=== PATIENT | female | born 1980 | race Caucasian/White ===

== ENCOUNTER 2018-02-10 18:38 | Emergency (ER) | payer OTHER ==
--- OUTSIDE RECORDS SUMMARY | 2018-02-10 18:41 | XMS REPORT | Summary of Care ---
:1980 Author Name Adelaide Petty R.N. Address Unavailable Unavailable , Care Team Providers Name Role Phone ERNESTINA CHRISTIANSON M.D. Unavailable Unavailable Unavailable Unavailable Unavailable Functional Status Functional Status Health Issues Name Dates Details Functional status health issues are not documented Status: Cognitive Status Health Issues Name Dates Details Cognitive status health issues are not documented Status: Problems Name Dates Details Oral thrush (112.0, B37.0) Status: Active Common migraine without aura (346.10, G43.009) Status: Active Multiple sclerosis (340, G35) Status: Active Medications Name Dates Details Zolpidem Tartrate 10 MG Oral Tablet TAKE 1 TABLET AT BEDTIME. Quantity: 30 Refills: 5 ERNESTINA CHRISTIANSON M.D. Started 27-Jun-2013 ActiveZOLMitriptan 5 MG Oral Tablet Dispersible DISSOLVE 1 TAB ON TONGUE AND SWALLOW AT ONSET OF MIGRAINE. MAY REPEAT ONCE AFTER 2 HOURS. MAX 10 MG/DAY. Quantity: 15 Refills: 6 ERNESTINA CHRISTIANSON M.D. Started 09-Apr-2012 ActiveSertraline HCl - 50 MG Oral Tablet TAKE ONE TABLET BY MOUTH EVERY DAY Quantity: 30 Refills: 6 ERNESTINA CHRISTIANSON M.D. Started 30-Jul-2013 ActiveGilenya 0.5 MG Oral Capsule TAKE 1 CAPSULE DAILY Quantity: 90 Refills: 3 ERNESTINA CHRISTIANSON M.D. Started 30-Jul-2013 ActiveHydrocodone-Acetaminophen 10-325 MG Oral Tablet Refills: 0 Started 26-Nov-2013 ActiveMeloxicam 15 MG Oral Tablet Refills: 0 Started 26-Nov-2013 ActivePredniSONE 50 MG Oral Tablet TAKE 12 TABLET EVERY 12 HOURS for 5 days Quantity: 120 Refills: 0 ERNESTINA CHRISTIANSON M.D. Started ActiveNystatin [id number] UNIT/ML Mouth/Throat Suspension PLACE 5 ML 4 TIMES DAILY swish and swallow Quantity: 600 Refills: 2 ERNESTINA CHRISTIANSON M.D. 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, G51.0) Status: Resolved History of Common migraine without aura (346.10, G43.009) Status: Resolved History of Fracture, carpal bone (814.00, S62.109A) Status: Resolved Procedures Procedure Dates Details History of Wrist Surgery Left History of Hysterectomy Procedures not documented Immunization Name Dates Details Immunizations not documented Family History Mother Name Dates Details Family history of Back Surgery Status: Active Social History Name Dates Details - Smoking StatusCurrent every day smoker Vital Signs Date Test Result Details No Known Vitals to report Results Date Description Value Details Results not documented Plan of Care Planned Observations Name Dates Details Planned Goals not documented Goal Interventions Provided Medication ChangesSertraline HCl - 50 MG Oral Tablet - Renew Instructions Instructions not documented Encounters Appointment; ERNESTINA CHRISTIANSON On Encounter Diagnosis: Problem not documented 13:00 Appointment; ERNESTINA CHRISTIANSON On 16-Dec-2014 Encounter Diagnosis: Problem not documented 08:30 Appointment; ERNESTINA CHRISTIANSON On 22-Jun-2014 Encounter Diagnosis: Problem not documented 08:30
--- OUTSIDE RECORDS SUMMARY | 2018-02-10 18:41 | XMS REPORT | Continuity of Care Document ---
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 norberto"/></span ></td><td styleCode=&qu ot;xdates"><s mendes style="xasIgn ore">
</s mendes><span style="x providerName" ><span style="xprovi derLastName"> MEGHAN</span >ERNESTINA M.D.</span></ td><td styleCode="xd etails"><list styleCode="xl istForTable"> <li styleCode="xl istForTable"> <table styleCode="xt ableWithinTab le"><tbody styleCode="xt ableWithinTab le"><tr><td>< span style="xlabel "> Started </span>2011</td></tr ></tbody></ta ble></li>< /list><span style="xstatu s"><span style="xlabel "/><span style="xvalue ">Active</spa n></span></td > Amantadine HCl <span Active 02/28/ [place] 100 MG Oral ID="[id number] [facility] Tablet [id number] belinda">Amantadi ne HCl 100 MG Oral Tablet</span> ; <span ID="[id number]">T GRUPO TABLET TWICE DAILY</span>; Start Date: 02/29/2012; End Date: (Active) Baclofen 10 MG <td ORAL Active [facility] Oral Tablet styleCode="xm [facility] ain"><span style="xdiv"> <span style="Bold&q uot; ID="[id number]" >Baclofen 10 MG Oral Tablet</span> </span><span style="x asIgnore">
</span><spa n style="xdiv"> <span style="x secondary"><s mendes ID="[id number]" >TAKE 1 TABLET 4 TIMES DAILY PRN</span></s mendes></span><s mendes style="xasIgn ore">
</s mendes><list styleCode="xl istForTable"> <li styleCode="xl istForTable"> <table styleCode="xt ableWithinTab le"><tbody styleCode="xt ableWithinTab le"><tr><t d><span style="xLabel Italics"> Refills: </span><span ID="[id number]" ><span>0</spa n></span></td ></tr></tbody ></table>< /li></list><s mendes style="xasIgn ore">
</s mendes><span style="xdiv"> <span style="xsecon norberto"/></span ></td><td styleCode="xd ates"/><td styleCode="xd etails"><span style="xstatu s"><span style="xvalue ">Active</spa n><span style="xasIgn ore">
</span></span ></td> Tysabri 300 <td INTRAVENOUS Active [place] MG/15ML styleCode="xm [facility] Intravenous ain"><span Concentrate style="xdiv"> <span style="Bold&q uot; ID="[id number]" >Tysabri 300 MG/15ML Intravenous Concentrate</ span></span>& lt;span style="xasIgn ore">
</s mendes><span style="xdiv"> <span style="xsecon norberto"><span ID="[id number]" >INFUSE 300 MG Other Monthly</span ></span></spa n><span style="xasIgn ore">
</s mendes><list styleCode="xl istForTable"> <li styleCode="xl istForTable"> <table styleCode="xt ableWithinTab le"><tbody styleCode="xt ableWithinTab le"><tr><td>< span style="xLabel Italics"> Quantity: </span><span ID="[id number]" ><span>1</spa n></span></td ><td><span style="x Label Italics"> Refills: </span><span ID="[id number]" ><span>5</ span></span>< /td></tr></tb robbie></table>< /li></list>&l t;span style="xasIgn ore">
</s mendes><span style="xdiv"> <span style="xsecon norberto"/></span ></td><td styleCode="xd ates"/><td styleCode="xd etails"><span style="xstatu s"><span style="xvalue ">Active</spa n><span style="xasIgn ore">
</s mendes></span ><span style="xdiv"> <span ID="[id number]" >15 ML Vial</span></ span><span style="xasIgn ore">
</s mendes></td> Rebif 44 <span Active [place] MCG/0.5ML ID="[id number] [facility] Subcutaneous [id number] Solution belinda">Rebif 44 MCG/0.5ML Subcutaneous Solution</spa n> (Active) FLUoxetine HCl <span Active [place] 40 MG Oral ID="[id number] [facility] Capsule [id number] belinda">FLUoxeti ne HCl 40 MG Oral Capsule</span > (Active) Zolpidem <span Active [facility] Tartrate 5 MG ID="[id number] [facility] Oral Tablet [id number] belinda">Zolpidem Tartrate 5 MG Oral Tablet</span> ; <span ID="[id number]">T GRUPO 1 TABLET AT BEDTIME NEEDED FOR SLEEP.</span> (Active) Allergies, Adverse Reactions, Alerts Substance Category Reaction Severity Reaction Status Date Comments Source type Reported LORazepam drug drug Active [facility] TABS allergy allergy [facility]IVAN Drug [facility] allergy [facility] Ativan Assertion Drug Active [facility] allergy LORazepam< Assertion Drug Active Data [facility] sup>1</sup allergy migrated > from [employer] on 12/31/14. Originally documented as ATIVAN. 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 Artist PAP SMEAR [facility] 014 Group Vital Signs Vital Sign Value Date Comments Source Systolic (mm Hg) 139 11/21/2017 [facility] Diastolic (mm Hg) 85 11/21/2017 [facility] Height 65 11/21/2017 [facility] Weight 164 11/21/2017 [facility] BMI Calculated 27.29 11/21/2017 [facility] Heart Rate 89 11/21/2017 [facility] BMI Calculated 24.18 11/16/2016 [facility] Weight 65.909 11/16/2016 [facility] Height 165.1 cm 11/16/2016 [facility] Temperature Oral (F) 97.7 F 11/16/2016 [facility] Respitory Rate 18 11/16/2016 [facility] Heart Rate 88 11/16/2016 [facility] Systolic (mm Hg) 132 11/16/2016 [facility] Diastolic (mm Hg) 86 11/16/2016 [facility] Systolic (mm Hg) 129 06/14/2016 [facility] Diastolic (mm Hg) 85 06/14/2016 [facility] Heart Rate 86 06/14/2016 [facility] Height 65 06/14/2016 [facility] Weight 148.125 06/14/2016 [facility] BMI Calculated 24.65 06/14/2016 [facility] Height 65 06/06/2014 [facility] Weight 163 06/06/2014 [facility] Temperature Oral (F) 98.6 F 06/06/2014 [facility] Heart Rate 64 06/06/2014 [facility] Systolic (mm Hg) 138 06/06/2014 [facility] Diastolic (mm Hg) 88 06/06/2014 [facility] Encounters Location Location Encounter Encounter Reason Attending ADM DC Status Source Details Type Number For Provider Date Date Visit AUDIT [id number] 02/28 /2011 Physician [facility] AUDIT [id number] 03/21 Physician s AUDIT [id number] 04/09 Physician s AUDIT [id number] 04/10 Physician s AUDIT [id number] 04/11 Physician s AUDIT [id number] 05/15 Physician s IESilvio, [id number] 08/07 05/15 [place] Provider: Physician RAMAN CHRISTIANSON, Status: Pen, Time: 1:00 PM AUDIT [id number] 08/24 Physician s AUDIT [id number] 12/30 Physician s AUDIT [id number] 06/27 Physician s AUDIT [id number] 07/23 Physician s IES, [id number] 07/30 07/23 [place] Provider: RAMAN Hollingsworth, Status: Pen, Time: 1:00 PM AUDIT [id number] 07/30 /2012 [facility] IES, [id number] 11/26 07/30 [place] Provider: Physician RAMAN CHRISTIANSON, Status: Pen, Time: 8:30 AM AUDIT [id number] 11/26 /2013 Physician s AUDIT [id number] 11/27 /2013 Physician s MARYCHUY, [id number] 05/27 11/27 [place] Provider: Physician RAMAN CHRISTIANSON, Status: Pen, Time: 9:30 AM [facility] Office [id number] Luis 06/06 06/06 Andrew Visit [address], [facility] Lab Report [id number] Luis 06/07 06/07 Andrew [address] [facility], /2013 [facility] [place] Appointmen [id number] 06/22 [place] t; Physician silvio CHRISTIANSON Appointmen [id number] 12/16 [place] [facility]; /2014 Physician silvio CHRISTIANSON Appointmen [id number] 02/03 [place] t; /2014 Physician silvio CHRISTIANSON [id number] 06/14 Physician s [id number] 09/13 Physician s [id number] 09/27 Physician s [facility] Emergency [id number] Tory 11/16 11/16 Andrew Akujobi /2016 [facility] [id number] 01/31 Physician s [id number] 11/21 Physician s Procedures Procedure Code Date Perfomer Comments Source smoking/tobacco 14 06/06/2014 yes Medical cessation, patient Group education and counseling vaginal Pap smear [id number] 04/07/2014 Normal Medical results Group History of Wrist [id number] [facility] [place] [address] [facility] Hysterectomy section [id number] [facility] Hysterectomy [id number] [facility] Wrist repair [id number] [facility]
--- OUTSIDE RECORDS SUMMARY | 2018-02-10 18:42 | XMS REPORT | Summary of Care ---
:1980 Author Organization [facility] Address [address] [place] [address] Care Team Providers Name Role Phone ERNESTINA CHRISTIANSON M.D. Unavailable Unavailable Unavailable Unavailable Unavailable Functional Status Name Dates Details Functional status health issues are not documented Status: Name Dates Details Cognitive status health issues are not documented Status: Problems Name Dates Details Oral thrush (112.0, B37.0) Status: Active Insomnia (780.52, G47.00) Status: Active Multiple sclerosis (340, G35) Status: Active Common migraine without aura (346.10, G43.009) Status: Active Medications Name Dates Details Zolpidem Tartrate 10 MG Oral Tablet TAKE one tablet at bedtime Quantity: 30 Refills: 5 ERNESTINA CHRISTIANSON M.D. Start : 10-Jul-2017 Active Sertraline HCl - 50 MG Oral Tablet TAKE ONE TABLET BY MOUTH EVERY DAY Quantity: 30 Refills: 6 ERNESTINA CHRISTIANSON M.D. Start : 05-Jul-2017 Active Gilenya 0.5 MG Oral Capsule TAKE 1 CAPSULE DAILY Quantity: 90 Refills: 3 ERNESTINA CHRISTIANSON M.D. Start : 30-Jul-2013 Active Hydrocodone-Acetaminophen 10-325 MG Oral Tablet Refills: 0 Start : 26-Nov-2013 Active Meloxicam 15 MG Oral Tablet TAKE 1 TABLET DAILY. Refills: 0 Start : 26-Nov-2013 Active Nystatin 017761 UNIT/ML Mouth/Throat Suspension PLACE 5 ML 4 TIMES DAILY swish and swallow Quantity: 600 Refills: 2 ERNESTINA CHRISTIANSON M.D. Start : 18-Feb-2015 Active Baclofen 10 MG Oral Tablet TAKE 1 TABLET 4 TIMES DAILY PRN Refills: 0 Active Temazepam 15 MG Oral Capsule TAKE 1 CAPSULE AT BEDTIME NEEDED FOR SLEEP. Quantity: 30 Refills: 5 ERNESTINA CHRISTIANSON M.D. Start : 14-Jun-2016 Active PredniSONE 50 MG Oral Tablet TAKE 12 TABLET EVERY 12 HOURS for 5 days Quantity: 120 Refills: 0 ERNESTINA CHRISTIANSON M.D. 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, G51.0) Status: Resolved History of Common migraine without aura (346.10, G43.009) Status: Resolved History of Fracture, carpal bone (814.00, S62.109A) Status: Resolved Procedures Procedure Dates Details History of Wrist Surgery Left Completed History of Hysterectomy Completed Immunization Name Dates Details Immunizations not documented Family History Name Dates Details Family history of Back Surgery Status: Active Social History Name Dates Details - Status: Name Dates Details Current every day smoker Vital Signs Date Test Result Details No Known Vitals to report Results Date Description Value Details Results not documented Plan of Care Name Dates Details Planned Observations Planned Goals not documented Planned Encounters Appointment; ERNESTINA CHRISTIANSON M.D. On: 21-Nov-2017 8:30 Instructions Name Dates Details Instructions not documented Encounters Appointment; ERNESTINA CHRISTIANSON M.D. On: 14-Jun-2016 10:30 Encounter Diagnosis: Problem not documented Appointment; ERNESTINA CHRISTIANSON M.D. On: 13-Sep-2016 10:30 Encounter Diagnosis: Problem not documented Appointment; ERNESTINA CHRISTIANSON M.D. On: 27-Sep-2016 8:30 Encounter Diagnosis: Problem not documented Appointment; ERNESTINA CHRISTIANSON M.D. On: 31-Jan-2017 9:30 Encounter Diagnosis: Problem not documented
--- OUTSIDE RECORDS SUMMARY | 2018-02-10 18:42 | XMS REPORT | Summary of Care ---
:1980 Author Name Adelaide Petty R.N. Address Unavailable Unavailable , Care Team Providers Name Role Phone Adalid Petty R.N.lett Unavailable Unavailable ERNESTINA CHRISTIANSON M.D. Unavailable Unavailable Unavailable Unavailable Unavailable Functional Status Functional Status Health Issues Name Dates Details Functional status health issues are not documented Status: Cognitive Status Health Issues Name Dates Details Cognitive status health issues are not documented Status: Problems Name Dates Details Oral thrush (112.0, B37.0) Status: Active Common migraine without aura (346.10, G43.009) Status: Active Insomnia (780.52, G47.00) Status: Active Multiple sclerosis (340, G35) Status: Active Medications Name Dates Details Zolpidem Tartrate 10 MG Oral Tablet TAKE 1 TABLET AT BEDTIME. Quantity: 30 Refills: 5 ERNESTINA CHRISTIANSON M.D. Started 27-Jun-2013 ActiveSertraline HCl - 50 MG Oral Tablet TAKE ONE TABLET BY MOUTH EVERY DAY Quantity: 30 Refills: 6 ERNESTINA CHRISTIANSON M.D. Started 30-Jul-2013 ActiveGilenya 0.5 MG Oral Capsule TAKE 1 CAPSULE DAILY Quantity: 90 Refills: 3 ERNESTINA CHRISTIANSON M.D. Started 30-Jul-2013 ActiveHydrocodone-Acetaminophen 10-325 MG Oral Tablet Refills: 0 Started 26-Nov-2013 ActiveMeloxicam 15 MG Oral Tablet TAKE 1 TABLET DAILY. Refills: 0 Started 26-Nov-2013 ActiveNystatin 408927 UNIT/ML Mouth/Throat Suspension PLACE 5 ML 4 TIMES DAILY swish and swallow Quantity: 600 Refills: 2 ERNESTINA CHRISTIANSON M.D. Started ActiveBaclofen 10 MG Oral Tablet TAKE 1 TABLET 4 TIMES DAILY PRN Refills: 0 ActiveTemazepam 15 MG Oral Capsule TAKE 1 CAPSULE AT BEDTIME NEEDED FOR SLEEP. Quantity: 30 Refills: 5 ERNESTINA CHRISTIANSON M.D. 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, G51.0) Status: Resolved History of Common migraine without aura (346.10, G43.009) Status: Resolved History of Fracture, carpal bone (814.00, S62.109A) Status: Resolved Procedures Procedure Dates Details History of Wrist Surgery Left History of Hysterectomy [[facility]] CBC (INCLUDES DIFF/PLT) Ordered:14-Jun-2016 [L] Comprehensive Metabolic Panel (esoterix) Ordered:14-Jun-2016 Immunization Name Dates Details Immunizations not documented Family History Mother Name Dates Details Family history of Back Surgery Status: Active Social History Name Dates Details - Smoking StatusCurrent every day smoker Vital Signs Date Test Result Details No Known Vitals to report Results Date Description Value Details Results not documented Plan of Care Planned Observations Name Dates Details Planned Goals not documented Goal Planned Encounters Appointment; Provider: ERNESTINA CHRISTIANSON On 27-Sep-2016 08:30 Appointment; Provider: ERNESTINA CHRISTIANSON On 13-Sep-2016 10:30 Interventions Provided Medication ChangesGilenya 0.5 MG Oral Capsule - Renew Instructions Instructions not documented Encounters Appointment; ERNESTINA CHRISTIANSON On 14-Jun-2016 Encounter Diagnosis: Problem not documented 10:30 Appointment; ERNESTINA CHRISTIANSON On Encounter Diagnosis: Problem not documented 13:00 Appointment; ERNESTINA CHRISTIANSON On 16-Dec-2014 Encounter Diagnosis: Problem not documented 08:30
--- OUTSIDE RECORDS SUMMARY | 2018-02-10 18:42 | XMS REPORT | Summary of Care ---
:1980 Author Organization [facility] Address [address] [place] [address] Care Team Providers Name Role Phone ERNESTINA [...] G43.009) Status: Active Medications Name Dates Details Gilenya 0.5 MG Oral Capsule TAKE 1 CAPSULE DAILY Quantity: 90 Refills: 3 ERNESTINA CHRISTIANSON M.D. Start : 30-Jul-2013 Active Baclofen 10 MG Oral Tablet TAKE [...] ERNESTINA CHRISTIANSON M.D. Start : 16-Nov-2016 Active Meloxicam 15 MG Oral Tablet TAKE 1 TABLET DAILY. Refills: 0 Start : 26-Nov-2013 Active Hydrocodone-Acetaminophen 10-325 MG Oral Tablet Refills: 0 Start : 26-Nov-2013 Active Zolpidem Tartrate 10 MG Oral Tablet TAKE 1 TABLET AT BEDTIME. Quantity: 30 Refills: 5 ERNESTINA CHRISTIANSON M.D. Start : 27-Jun-2013 Active Sertraline HCl - 50 MG Oral Tablet TAKE ONE TABLET BY MOUTH EVERY DAY Quantity: 30 Refills: 6 ERNESTINA HCRISTIANSON M.D. Start : 30-Jul-2013 Active Nystatin 382711 UNIT/ML Mouth/Throat Suspension PLACE 5 ML 4 TIMES DAILY swish and swallow Quantity: 600 Refills: 2 ERNESTINA CHRISTIANSON M.D. Start : 18-Feb-2015 Active Allergies and Adverse Reactions Name Dates [...] Details Planned Observations Planned Goals not documented Instructions Name Dates Details Instructions not documented Encounters Appointment; ERNESTINA CHRISTIANSON M.D. On: 14-Jun-2016 10:30 Encounter Diagnosis: Problem not documented Appointment; ERNESTINA CHRISTIANSON M.D. On: 13-Sep-2016 10:30 Encounter Diagnosis: Problem not documented Appointment; ERNESTINA CHRISTIANSON M.D. On: 27-Sep-2016 8:30 Encounter Diagnosis: Problem not documented Appointment; ERNESTINA CHRISTIANSON M.D. On: 31-Jan-2017 9:30 Encounter Diagnosis: Problem not documented
--- OUTSIDE RECORDS SUMMARY | 2018-02-10 18:42 | XMS REPORT | Summary of Care ---
:1980 Author Name Tamra Eduardo R.N. Address Unavailable Unavailable , Care Team Providers Name Role Phone Tamra Eduardo R.N. Unavailable Unavailable ERNESTINA CHRISTIANSON M.D. Unavailable Unavailable Unavailable Unavailable Functional Status Functional [...] TABLET DAILY. Refills: 0 Started 26-Nov-2013 ActiveNystatin 233553 UNIT/ML Mouth/Throat Suspension PLACE 5 ML 4 [...] of Wrist Surgery Left History of Hysterectomy [Q] STRATIFY JCV(TM) AB (WITH INDEX) W/RFL INHIBITION Ordered:27-Sep-2016 Immunization Name Dates Details Immunizations not documented [...] Planned Encounters Appointment; Provider: ERNESTINA CHRISTIANSON On 31-Jan-2017 09:30 Appointment; Provider: ERNESTINA CHRISTIANSON On 27-Dec-2016 10:30 Instructions Instructions not documented Encounters Appointment; ERNESTINA CHRISTIANSON On 27-Sep-2016 Encounter Diagnosis: Problem not documented 08:30 Appointment; ERNESTINA CHRISTIANSON On 13-Sep-2016 Encounter Diagnosis: Problem not documented 10:30 Appointment; ERNESTINA CHRISTIANSON On 14-Jun-2016 Encounter Diagnosis: Problem not documented 10:30 Appointment; ERNESTINA CHRISTIANSON On Encounter Diagnosis: Problem not documented 13:00 Appointment; ERNESTINA CHRISTIANSON On 16-Dec-2014 Encounter Diagnosis: Problem not documented 08:30
--- OUTSIDE RECORDS SUMMARY | 2018-02-10 18:42 | XMS REPORT | Summary of Care ---
:1980 Author Name Lis Saravia R.N. Address Unavailable Unavailable , Care Team Providers Name Role Phone Lis Saravia R.N. Unavailable Unavailable ERNESTINA CHRISTIANSON M.D. Unavailable [...] TABLET DAILY. Refills: 0 Started 26-Nov-2013 ActiveNystatin 212147 UNIT/ML Mouth/Throat Suspension PLACE 5 ML 4 [...] smoker Vital Signs Date Test Result Details 14-Jun-2016 10:48 BP Systolic 129 mm[Hg] Status: BP Diastolic 85 mm[Hg] Status: Heart Rate 86 /min Status: Height 65 in Status: Weight 148.125 lb Status: Body Mass Index Calculated 24.65 kg/m2 Status: Body Surface Area Calculated 1.74 m2 Status: Results Date Description Value Details Results not documented Plan of Care Planned Observations Name Dates Details Planned Goals not documented Goal Planned Encounters Appointment; Provider: ERNESTINA CHRISTIANSON On 27-Sep-2016 08:30 Appointment; Provider: ERNESTINA CHRISTIANSON On 13-Sep-2016 10:30 Instructions Instructions not documented Encounters Appointment; ERNESTINA CHRISTIANSON On 14-Jun-2016 Encounter Diagnosis: Problem not documented 10:30 Appointment; ERNESTINA CHRISTIANSON On Encounter Diagnosis: Problem not documented 13:00 Appointment; ERNESTINA CHRISTIANSON On 16-Dec-2014 Encounter Diagnosis: Problem not documented 08:30
--- OUTSIDE RECORDS SUMMARY | 2018-02-10 18:42 | XMS REPORT | Summary of Care ---
:1980 Author Name Adelaide Petty R.N. Address [facility] Unavailable , Care Team Providers Name Role [...] Refills: 5 ERNESTINA CHRISTIANSON M.D. Start : 05-Jul-2017 Active Sertraline HCl - 50 MG Oral [...] Refills: 0 Start : 26-Nov-2013 Active Nystatin 486285 UNIT/ML Mouth/Throat Suspension PLACE 5 ML 4 [...]
--- OUTSIDE RECORDS SUMMARY | 2018-02-10 18:42 | XMS REPORT | Summary of Care ---
:1980 Author Name Blanca Alejandre R.N. Address Unavailable Unavailable , Care Team Providers Name Role Phone Hill Martinez, Blanca Unavailable Unavailable ERNESTINA CHRISTIANSON M.D. Unavailable Unavailable [...] TABLET DAILY. Refills: 0 Started 26-Nov-2013 ActiveNystatin 149733 UNIT/ML Mouth/Throat Suspension PLACE 5 ML 4 [...]
--- OUTSIDE RECORDS SUMMARY | 2018-02-10 18:42 | XMS REPORT | Summary of Care ---
[...] TABLET DAILY. Refills: 0 Started 26-Nov-2013 ActiveNystatin 297425 UNIT/ML Mouth/Throat Suspension PLACE 5 ML 4 [...]
--- OUTSIDE RECORDS SUMMARY | 2018-02-10 18:42 | XMS REPORT | Summary of Care ---
:1980 Author Care Team Providers Name Role Phone ERNESTINA [...] ActiveHydrocodone-Acetaminophen 10-325 MG Oral Tablet Refills: 0 , M.A. Started 26-Nov-2013 ActiveMeloxicam 15 MG Oral Tablet TAKE 1 TABLET DAILY. Refills: 0 , M.A. Started 26-Nov-2013 ActiveNystatin 866035 UNIT/ML Mouth/Throat Suspension PLACE 5 ML 4 TIMES DAILY swish and swallow Quantity: 600 Refills: 2 ERNESTINA CHRISTIANSON M.D. Started ActiveBaclofen 10 MG Oral Tablet TAKE 1 TABLET 4 TIMES DAILY PRN Refills: 0 , M.A.ActiveTemazepam 15 MG Oral Capsule TAKE 1 CAPSULE AT BEDTIME NEEDED FOR SLEEP. Quantity: 30 Refills: 5 ERNESTINA CHRISTIANSON M.D. Started 14-Jun-2016 ActivePredniSONE 50 MG Oral Tablet TAKE 12 TABLET EVERY 12 HOURS for 5 days Quantity: 120 Refills: 0 ERNESTINA CHRISTIANSON M.D. Started 16-Nov-2016 Active Allergies and Adverse Reactions Name [...]
--- OUTSIDE RECORDS SUMMARY | 2018-02-10 18:42 | XMS REPORT | Summary of Care ---
:1980 Author Organization [facility] Address [address] [place] [address] Care Team Providers Name Role Phone ERNESTINA [...] Refills: 0 Start : 26-Nov-2013 Active Nystatin 539149 UNIT/ML Mouth/Throat Suspension PLACE 5 ML 4 [...]
--- OUTSIDE RECORDS SUMMARY | 2018-02-10 18:42 | XMS REPORT | Summary of Care ---
:1980 Author Name ERNESTINA CHRISTIANSON M.D. Address Unavailable Unavailable , Care Team Providers [...] TABLET DAILY. Refills: 0 Started 26-Nov-2013 ActiveNystatin 131774 UNIT/ML Mouth/Throat Suspension PLACE 5 ML 4 [...] CHRISTIANSON On 13-Sep-2016 10:30 Interventions Provided Medication ChangesSertraline HCl - 50 MG Oral Tablet - RenewTemazepam 15 MG Oral Capsule - StartLabs/Procedures/Imaging[L] Comprehensive Metabolic Panel ( esoterix); To be Done: 14 Jun 2016[[facility]H] CBC (INCLUDES DIFF/PLT); To be Done: 14 Jun 2016 Instructions Instructions not documented Encounters Appointment; ERNESTINA CHRISTIANSON On Encounter Diagnosis: Problem not documented 13:00 Appointment; ERNESTINA CHRISTIANSON On 16-Dec-2014 Encounter Diagnosis: Problem not documented 08:30 Appointment; ERNESTINA CHRISTIANSON On 22-Jun-2014 Encounter Diagnosis: Problem not documented 08:30
--- OUTSIDE RECORDS SUMMARY | 2018-02-10 18:42 | XMS REPORT | Summary of Care ---
[...] TABLET DAILY. Refills: 0 Started 26-Nov-2013 ActiveNystatin 432864 UNIT/ML Mouth/Throat Suspension PLACE 5 ML 4 [...] Appointment; Provider: ERNESTINA CHRISTIANSON On 27-Dec-2016 10:30 Interventions Provided Medication ChangesPredniSONE 50 MG Oral Tablet - StartLabs/Procedures/Imaging[Q ] STRATIFY JCV(TM) AB (WITH INDEX) W/RFL INHIBITION; To be Done: 27 Sep 2016 Instructions Instructions not documented Encounters Appointment; ERNESTINA CHRISTIANSON On 13-Sep-2016 Encounter Diagnosis: Problem not documented 10:30 Appointment; ERNESTINA CHRISTIANSON On 14-Jun-2016 Encounter Diagnosis: Problem not documented 10:30 Appointment; ERNESTINA CHRISTIANSON On Encounter Diagnosis: Problem not documented 13:00 Appointment; ERNESTINA CHRISTIANSON On 16-Dec-2014 Encounter Diagnosis: Problem not documented 08:30
--- OUTSIDE RECORDS SUMMARY | 2018-02-10 18:42 | XMS REPORT | Summary of Care ---
:1980 Author Name Rachna Cardoza R.N. Address Unavailable Unavailable , Care Team Providers Name Role Phone Sony Martinez, Rachna Unavailable Unavailable ERNESTINA CHRISTIANSON M.D. Unavailable Unavailable [...] Refills: 6 ERNESTINA CHRISTIANSON M.D. Start : 30-Jul-2013 Active Gilenya 0.5 MG Oral Capsule TAKE 1 CAPSULE DAILY Quantity: 90 Refills: 3 ERNESTINA CHRISTIANSON M.D. Start : 30-Jul-2013 Active Hydrocodone-Acetaminophen 10-325 MG Oral Tablet Refills: 0 Start : 26-Nov-2013 Active Meloxicam 15 MG Oral Tablet TAKE 1 TABLET DAILY. Refills: 0 Start : 26-Nov-2013 Active Nystatin 782694 UNIT/ML Mouth/Throat Suspension PLACE 5 ML 4 [...] Details Planned Observations Planned Goals not documented Interventions Provided Discussion/SummaryGuideline Used: Other: Callback from clinic staff Recommended Disposition: Call back within 24 -72 hours if have not received call back from staff member Action Taken: Patient informed/educated about nurse line Intended Caller Action: Other: Receive MD recommednations Additional Information: Patient verbalized understandings of this call and agree to the recommended disposition at this time. Patient was also educated on nurse triage line use & amp; encouraged to call back for symptom support or additional home care advice and/or go to the nearest Emergency Room or call 911 if patient condition has worsened to a medical emergency.Task sent to Neuro MS team./ Instructions Name Dates Details Instructions not documented Encounters Appointment; ERNESTINA CHRISTIANSON M.D. On: 14-Jun-2016 10:30 Encounter Diagnosis: Problem not documented Appointment; ERNESTINA CHRISTIANSON M.D. On: 13-Sep-2016 10:30 Encounter Diagnosis: Problem not documented Appointment; ERNESTINA CHRISTIANSON M.D. On: 27-Sep-2016 8:30 Encounter Diagnosis: Problem not documented Appointment; ERNESTINA CHRISTIANSON M.D. On: 31-Jan-2017 9:30 Encounter Diagnosis: Problem not documented
--- OUTSIDE RECORDS SUMMARY | 2018-02-10 18:43 | XMS REPORT | Summary of Care ---
:1980 Author Organization [facility] Address [address] [place] [address] Care Team Providers Name Role Phone ERNESTINA [...] Refills: 0 Start : 26-Nov-2013 Active Nystatin 076930 UNIT/ML Mouth/Throat Suspension PLACE 5 ML 4 [...]
--- OUTSIDE RECORDS SUMMARY | 2018-02-10 18:43 | XMS REPORT ---
:1980 Author Name ERNESTINA CHRISTIANSON Care Team Providers Name Role Phone MEGHAN ERNESTINA Unavailable Unavailable Unavailable Reason for Referral No Reason for Referral was given. History of Present Illness No HPI available. Problems Normal Routine History And Physical Adult (V70.0); (Active)Multiple Sclerosis (340); (Active)Multiple Sclerosis (340); (Active)Common Migraine (Without Aura) (346.10); (Active) Medication Rebif 44 MCG/0.5ML Subcutaneous Solution (Active)FLUoxetine HCl 40 MG Oral Capsule (Active)Zolpidem Tartrate 5 MG Oral Tablet (Active)Amantadine HCl 100 MG Oral Tablet;TAKE TABLET TWICE DAILY; Start Date: 02/29/2012; End Date: 09/03 (Active) Allergies and Adverse Reactions LORazepam TABS (Active) Past Medical History History ofCommon Migraine (Without Aura) (346.10); (Resolved)History ofFracture Of The Carpal Bone(S) (814.00); (Resolved)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 Encounters AUDIT 03/21/2012IES, Provider: ERNESTINA CHRISTIANSON, Status: [place], Time: 1:00 PM 2011
--- OUTSIDE RECORDS SUMMARY | 2018-02-10 18:43 | XMS REPORT | Summary of Care ---
:1980 Author Organization [facility] Address [address] [place] [address] Care Team Providers Name Role Phone ERNESTINA [...] Refills: 0 Start : 26-Nov-2013 Active Nystatin 461088 UNIT/ML Mouth/Throat Suspension PLACE 5 ML 4 [...]
--- OUTSIDE RECORDS SUMMARY | 2018-02-10 18:43 | XMS REPORT | Summary of Care ---
[...] Active Multiple sclerosis (340, G35) Status: Active Insomnia (780.52, G47.00) Status: Active Medications Name Dates Details Zolpidem [...] Refills: 0 Start : 26-Nov-2013 Active Nystatin 190665 UNIT/ML Mouth/Throat Suspension PLACE 5 ML 4 [...] ERNESTINA CHRISTIANSON M.D. 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, G51.0) Status: Resolved History of Common migraine without aura (346.10, G43.009) Status: Resolved History of Fracture, carpal bone (814.00, S62.109A) Status: Resolved Procedures Procedure Dates Details [Q] STRATIFY JCV(TM) AB (WITH INDEX) W/RFL INHIBITION Date: 21-Nov-2017 MRI Brain w/wo contrast 09272 Date: 21-Nov-2017 History of Wrist Surgery Left Completed History of Hysterectomy Completed Immunization Name Dates Details Immunizations not documented Family History Name Dates Details Family history of Back Surgery Status: Active Social History Name Dates Details - Status: Name Dates Details Current every day smoker Vital Signs Date Test Result Details 47-Ugx-46858:51 BP Systolic 139 mm[Hg] Status: BP Diastolic 85 mm[Hg] Status: Height 65 in Status: Weight 164 lb Status: Body Mass Index Calculated 27.29 kg/m2 Status: Body Surface Area Calculated 1.82 m2 Status: Heart Rate 89 /min Status: Results Date Description Value Details Results not documented Plan of Care Name Dates Details Planned Observations Planned Goals not documented Planned Encounters Appointment; ERNESTINA CHRISTIANSON M.D. On: 22-May-2018 8:30 Interventions Provided Labs/Procedures/Imaging[Q] STRATIFY JCV(TM) AB (WITH INDEX) W/RFL INHIBITION; To Be Done: 21 Nov 2017MRI Brain w/wo contrast 38397; To Be Done: 21 Nov 2017Discussion/[id number] yo F with RRMS currenty on Tysabri. No new symptoms since starting the medication. On exam today she has weakness of the LLE and some sensory loss.She has not had MRI done because of insurance issues.- Continue Tysabri-ALEX virus-MRI brain and c-spine w/wo contrast-RTC in 6 months Instructions Name Dates Details Instructions not documented Encounters Appointment; ERNESTINA CHRISTIANSON M.D. On: 14-Jun-2016 10:30 Encounter Diagnosis: Problem not documented Appointment; ERNESTINA CHRISTIANSON M.D. On: 13-Sep-2016 10:30 Encounter Diagnosis: Problem not documented Appointment; ERNESTINA CHRISTIANSON M.D. On: 27-Sep-2016 8:30 Encounter Diagnosis: Problem not documented Appointment; ERNESTINA CHRISTIANSON M.D. On: 31-Jan-2017 9:30 Encounter Diagnosis: Problem not documented Appointment; ERNESTINA CHRISTIANSON M.D. On: 21-Nov-2017 8:30 Encounter Diagnosis: Problem not documented
--- OUTSIDE RECORDS SUMMARY | 2018-02-10 18:43 | XMS REPORT | Summary of Care ---
:1980 Author Name Caterina Trujillo M.A. Address Unavailable Unavailable , Care Team Providers Name Role Phone Caterina Trujillo M.A. Unavailable Unavailable ERNESTINA CHRISTIANSON M.D. Unavailable Unavailable [...] G47.00) Status: Active Medications Name Dates Details Sertraline HCl - 50 MG Oral Tablet TAKE ONE TABLET BY MOUTH EVERY DAY Quantity: 30 Refills: 6 ERNESTINA CHRISTIANSON M.D. Start : 30-Jul-2013 Active Hydrocodone-Acetaminophen 10-325 MG Oral Tablet TAKE 1 TABLET EVERY 4 HOURS NEEDED FOR PAIN. Refills: 0 Start : 26-Nov-2013 Active Meloxicam 15 MG Oral Tablet TAKE 1 TABLET DAILY. Refills: 0 Start : 26-Nov-2013 Active Nystatin 952203 UNIT/ML Mouth/Throat Suspension PLACE 5 ML 4 TIMES DAILY swish and swallow Quantity: 600 Refills: 2 ERNESTINA CHRISTIANSON M.D. Start : 18-Feb-2015 Active Baclofen 10 MG Oral Tablet TAKE 1 TABLET 4 TIMES DAILY PRN Refills: 0 Active Temazepam 15 MG Oral Capsule TAKE 1 CAPSULE AT BEDTIME NEEDED FOR SLEEP. Quantity: 30 Refills: 5 ERNESTINA CHRISTIANSON M.D. Start : 14-Jun-2016 Active Tysabri 300 MG/15ML Intravenous Concentrate INFUSE 300 MG Other Monthly Quantity: 1 Refills: 5 Active 15 ML Vial Allergies and Adverse [...] INHIBITION Date: 21-Nov-2017 MRI Brain w/wo contrast 78536 Date: 21-Nov-2017 History of Wrist Surgery Left Completed History of Hysterectomy Completed Immunization Name Dates Details Immunizations not documented Family History Name Dates Details Family history of Back Surgery Status: Active Social History Name Dates Details - Status: Name Dates Details Current every day smoker Vital Signs Date Test Result Details 31-Cxu-37533:51 BP Systolic 139 mm[Hg] Status: BP Diastolic [...] CHRISTIANSON M.D. On: 22-May-2018 8:30 Interventions Provided Medication ChangesNystatin 186359 UNIT/ML Mouth/Throat Suspension - RenewSertraline HCl - 50 MG Oral Tablet - RenewTemazepam 15 MG Oral Capsule - Renew Instructions Name Dates Details Instructions not documented [...]
--- OUTSIDE RECORDS SUMMARY | 2018-02-10 18:43 | XMS REPORT | Summary of Care ---
[...] Refills: 0 Start : 26-Nov-2013 Active Nystatin 472770 UNIT/ML Mouth/Throat Suspension PLACE 5 ML 4 [...] INHIBITION Date: 21-Nov-2017 MRI Brain w/wo contrast 84405 Date: 21-Nov-2017 History of Wrist Surgery Left Completed History of Hysterectomy Completed Immunization Name Dates Details Immunizations not documented Family History Name Dates Details Family history of Back Surgery Status: Active Social History Name Dates Details - Status: Name Dates Details Current every day smoker Vital Signs Date Test Result Details 27-Nds-75766:51 BP Systolic 139 mm[Hg] Status: BP Diastolic [...] Done: 21 Nov 2017MRI Brain w/wo contrast 94899; To Be Done: 21 Nov 2017Discussion/[id number] yo F with RRMS currenty on Tysabri. [...]
--- OUTSIDE RECORDS SUMMARY | 2018-02-10 18:43 | XMS REPORT ---
:1980 Author Name Caterina Trujillo Care Team Providers Name Role Phone Caterina Trujillo Unavailable Unavailable Unavailable Reason for Referral No Reason for Referral was given. History of Present Illness No HPI available. Problems Normal Routine History And Physical Adult (V70.0); (Active)Multiple Sclerosis (340); (Active)Multiple Sclerosis (340); (Active)Common Migraine (Without Aura) (346.10); (Active) Medication Rebif 44 MCG/0.5ML Subcutaneous Solution (Active)FLUoxetine HCl 40 MG Oral Capsule (Active)Zolpidem Tartrate 5 MG Oral Tablet;TAKE 1 TABLET AT BEDTIME NEEDED FOR SLEEP. (Active)Amantadine HCl 100 MG Oral Tablet;TAKE TABLET TWICE DAILY; Start Date: 02/29/2012; End Date: (Active)Zomig ZMT 5 MG Oral Tablet Dispersible;DISSOLVE 1 TAB ON TONGUE AND SWALLOW AT ONSET OF MIGRAINE. MAY REPEAT ONCE AFTER 2 HOURS. MAX 10 MG/DAY.; Start Date: 04/09/2012; End Date : (Active) Allergies and Adverse Reactions LORazepam TABS [...] Directives No Advance Directives available. Encounters AUDIT 04/10/2012IES, Provider: ERNESTINA CHRISTIANSON, Status: [place], Time: 1:00 PM 2011
--- OUTSIDE RECORDS SUMMARY | 2018-02-10 18:43 | XMS REPORT | Summary of Care ---
:1980 Author Organization [facility] Address [address] [place] [address] Care Team Providers Name Role Phone ERNESTINA [...] Refills: 0 Start : 26-Nov-2013 Active Nystatin 210978 UNIT/ML Mouth/Throat Suspension PLACE 5 ML 4 [...]
--- OUTSIDE RECORDS SUMMARY | 2018-02-10 18:43 | XMS REPORT | Summary of Care ---
:1980 Author Organization [facility] Address [address] [place] [address] Care Team Providers Name Role Phone ERNESTINA [...] Refills: 0 Start : 26-Nov-2013 Active Nystatin 512257 UNIT/ML Mouth/Throat Suspension PLACE 5 ML 4 [...] INHIBITION Date: 21-Nov-2017 MRI Brain w/wo contrast 50084 Date: 21-Nov-2017 History of Wrist Surgery Left Completed History of Hysterectomy Completed Immunization Name Dates Details Immunizations not documented Family History Name Dates Details Family history of Back Surgery Status: Active Social History Name Dates Details - Status: Name Dates Details Current every day smoker Vital Signs Date Test Result Details 40-Nvm-43907:51 BP Systolic 139 mm[Hg] Status: BP Diastolic [...] Appointment; ERNESTINA CHRISTIANSON M.D. On: 22-May-2018 8:30 Instructions Name Dates Details Instructions not [...]
--- OUTSIDE RECORDS SUMMARY | 2018-02-10 18:43 | XMS REPORT ---
[...] Directives No Advance Directives available. Encounters AUDIT 02/29/2012IES, Provider: ERNESTINA CHRISTIANSON, Status: [place], Time: 1:00 PM 2011
--- OUTSIDE RECORDS SUMMARY | 2018-02-10 18:43 | XMS REPORT | Summary of Care ---
:1980 Author Name SVEN HERNÁNDEZ M.D. Address Unavailable Unavailable , Care Team [...] Refills: 0 Start : 26-Nov-2013 Active Nystatin 283112 UNIT/ML Mouth/Throat Suspension PLACE 5 ML 4 [...] smoker Vital Signs Date Test Result Details 65-Iwa-85159:51 BP Systolic 139 mm[Hg] Status: BP Diastolic 85 mm[Hg] Status: Height 65 in Status: Weight 164 lb Status: Body Mass Index Calculated 27.29 kg/m2 Status: Body Surface Area Calculated 1.82 m2 Status: Heart Rate 89 /min Status: Results Date Description Value Details Results not documented Plan of Care Name Dates Details Planned Observations Planned Goals not documented Interventions Provided Discussion/[id number] yo F with RRMS currenty on Tysabri. No new symptoms since starting the medication. On exam today she has weakness of the LLE and some sensory loss.She has not had MRI done because of insurance issues.-Continue Tysabri-ALEX virus-MRI brain and c-spine w/wo contrast-RTC [...]
--- OUTSIDE RECORDS SUMMARY | 2018-02-10 18:43 | XMS REPORT | Summary of Care ---
:1980 Author Name Susanne Forrest M.A. Address [facility] Unavailable , Care Team [...] Refills: 0 Start : 26-Nov-2013 Active Nystatin 214402 UNIT/ML Mouth/Throat Suspension PLACE 5 ML 4 [...] smoker Vital Signs Date Test Result Details 33-Kpk-62887:51 BP Systolic 139 mm[Hg] Status: BP Diastolic [...]
--- OUTSIDE RECORDS SUMMARY | 2018-02-10 18:43 | XMS REPORT | Summary of Care ---
[...] Refills: 0 Start : 26-Nov-2013 Active Nystatin 632954 UNIT/ML Mouth/Throat Suspension PLACE 5 ML 4 [...] INHIBITION Date: 21-Nov-2017 MRI Brain w/wo contrast 63152 Date: 21-Nov-2017 History of Wrist Surgery Left Completed History of Hysterectomy Completed Immunization Name Dates Details Immunizations not documented Family History Name Dates Details Family history of Back Surgery Status: Active Social History Name Dates Details - Status: Name Dates Details Current every day smoker Vital Signs Date Test Result Details 00-Adp-18792:51 BP Systolic 139 mm[Hg] Status: BP Diastolic [...] Done: 21 Nov 2017MRI Brain w/wo contrast 94684; To Be Done: 21 Nov 2017Discussion/[id number] yo F with RRMS currenty on Tysabri. [...]
--- OUTSIDE RECORDS SUMMARY | 2018-02-10 18:44 | XMS REPORT | Continuity of Care Document ---
:1980 Author Organization [facility] Care Team Providers Name Role Phone MD Pearl, Luis Unavailable Unavailable Insurance Providers Payer name Policy type / Policy ID Covered democrat ID Policy [place] [employer] [place]) [place] Encounters Encounter Performer Location Date Office Visit Luis Kang MD [facility] [place] Jun 06, 2014 Allergies, Adverse Reactions, Alerts Type Substance Reaction Status Drug allergy ATIVAN kailyn Active Problems Problem Effective Dates Problem Status MULTIPLE SCLEROSIS Active MIGRAINE HEADACHE Active ELEVATED BLOOD PRESSURE Jun 06, 2014 Active LOW BACK PAIN Jun 06, 2014 Active ANEMIA Jun 06, 2014 Active Procedures Date Description Comments Jun 06, 2014 smoking status Current every day smoker Apr 07, 2014 vaginal Pap smear results Normal Jun 06, 2014 smoking/tobacco cessation, patient education yes and counseling Medications Medication Instructions Start Date Status FIORICET 50-325-40 MG TABS Inactive HYDROCODONE-ACETAMINOPHEN 10-325 MG TABS 1 p.o. qid prn Jun 06, 2014 Active BACLOFEN 10 MG TABS 1 p.o. bid Jun 06, 2014 Active AMBIEN 10 MG TABS 1 p-.o. qhs Jun 06, 2014 Active ZOLOFT 50 MG TABS 1 p.o. daily Jun 06, 2014 Active GILENYA CAPS 1 p.o. daily Jun 06, 2014 Active Vital Signs Date Description Test Result Jun 06, 2014 height E&M - 8302-2 HEIGHT 65 in Jun 06, 2014 weight E&M - 3141-9 WEIGHT 163 lb Jun 06, 2014 temperature E&M TEMPERATURE 98.6 deg f Jun 06, 2014 pulse rate E&M - 8867-4 PULSE RATE 64 /min Jun 06, 2014 blood pressure, systolic - 8480-6 BP SYSTOLIC 138 mm Hg Jun 06, 2014 blood pressure, diastolic - 8462-4 BP DIASTOLIC 88 mm Hg Results Date Description Test Name Value Reference Interpretation Status Apr 07, 2014 vaginal Pap smear PAP SMEAR Normal null results
--- OUTSIDE RECORDS SUMMARY | 2018-02-10 18:44 | XMS REPORT ---
:1980 Author Name Adelaide Petty Care Team Providers Name Role Phone Adelaide Petty Unavailable Unavailable Unavailable Reason for Referral No Reason for Referral was given. History of Present Illness No HPI available. Problems Normal Routine History And Physical Adult (V70.0); (Active)Multiple Sclerosis (340); (Active)Multiple Sclerosis (340); (Active)Common Migraine (Without Aura) (346.10); (Active)Oral Thrush (112.0); ( Active) Medication Rebif 44 MCG/0.5ML Subcutaneous Solution (Active)FLUoxetine HCl 40 MG Oral Capsule (Active)Zomig ZMT 5 MG Oral Tablet Dispersible;DISSOLVE 1 TAB ON TONGUE AND SWALLOW AT ONSET OF MIGRAINE. MAY REPEAT ONCE AFTER 2 HOURS. MAX 10 MG/DAY. 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 Encounters AUDIT 06/27/2013
--- OUTSIDE RECORDS SUMMARY | 2018-02-10 18:44 | XMS REPORT ---
:1980 Author Name ERNESTINA CHRISTIANSON Care Team Providers Name Role Phone ERNESTINA CHRISTIANSON Unavailable Unavailable Unavailable Reason for Referral No Reason for Referral was given. History of Present Illness No HPI available. Problems Normal Routine History And Physical Adult (V70.0); (Active)Multiple Sclerosis (340); (Active)Common Migraine (Without Aura) (346.10); (Active)Multiple Sclerosis (340); (Active) Medication Rebif 44 MCG/0.5ML Subcutaneous Solution (Active)FLUoxetine HCl 40 MG Oral Capsule (Active)Zolpidem Tartrate 5 MG Oral Tablet (Active)Amantadine HCl 100 MG Oral Tablet;TAKE TABLET TWICE DAILY; Start Date: 02/29/2012; End Date: 09/03 (Active)Zomig ZMT 5 MG Oral Tablet Dispersible;DISSOLVE 1 TAB ON TONGUE AND SWALLOW AT ONSET OF MIGRAINE. MAY REPEAT ONCE AFTER 2 HOURS. MAX 10 MG/DAY. ; Start Date: 04/09/2012; End Date: (Active) Allergies and Adverse Reactions LORazepam TABS [...] Marital History - Single (Active) Treatment Plan [QL] CBC (INCLUDES DIFF/PLT) 02/28/2012 Routine[[facility]] HEPATIC FUNCTION PANEL Routine Advance Directives No Advance Directives available. Encounters AUDIT 04/09/2012IES, Provider: ERNESTINA CHRISTIANSON, Status: Pen, Time: 1:00 PM 2011
--- OUTSIDE RECORDS SUMMARY | 2018-02-10 18:44 | XMS REPORT | Continuity of Care Document ---
:1980 Author Organization [facility] Care Team Providers Name Role Phone MD Pearl, Luis Unavailable Unavailable Insurance Providers Payer name Policy type / Policy ID Covered constitution party ID Policy [place] [employer] [place]) [place] Encounters Encounter Performer Location Date Lab Report Luis Kang MD [facility] - Jun 07, 2014 [place] Allergies, Adverse Reactions, Alerts Type Substance Reaction [...]
--- OUTSIDE RECORDS SUMMARY | 2018-02-10 18:44 | XMS REPORT ---
:1980 Author Name ERNESTINA CHRISTIANSON Care Team Providers Name Role Phone ERNESTINA CHRISTIANSON Unavailable Unavailable Unavailable Reason for Referral No Reason for Referral was given. History of Present Illness No HPI available. Problems Normal Routine History And Physical Adult (V70.0); (Active)Oral Thrush ( 112.0); (Active)Multiple Sclerosis (340); (Active)Multiple Sclerosis (340); (Active)Common Migraine (Without Aura) (346.10); (Active) Medication Zomig ZMT 5 MG Oral Tablet Dispersible;DISSOLVE 1 TAB ON TONGUE AND SWALLOW AT ONSET OF MIGRAINE. MAY REPEAT ONCE AFTER 2 HOURS. MAX 10 MG/DAY.; Start Date: ; End Date: (Active)Zolpidem Tartrate 5 MG Oral Tablet;TAKE 1 TABLET BY MOUTH NEEDED FOR SLEEP; Start Date: 06/27/2013 (Active) Gabapentin 300 MG Oral Capsule;TAKE 1 CAPSULE 3 TIMES DAILY PRN pain; Start Date : 07/30/2013; End Date: (Active)Sertraline HCl 50 MG Oral Tablet; TAKE 1 TABLET DAILY.; Start Date: 07/30/2013; End Date: (Active) TiZANidine HCl 4 MG Oral Tablet; Start Date: 11/26/2013 (Active)Hydrocodone- Acetaminophen 10-325 MG Oral Tablet; Start Date: 11/26/2013 (Active)Meloxicam 15 MG Oral Tablet; Start Date: 11/26/2013 (Active)Gilenya 0.5 MG Oral Capsule; TAKE 1 CAPSULE DAILY; Start Date: 07/30/2013 (Active) Allergies and Adverse Reactions LORazepam TABS [...] Marital History - Single (Active) Treatment Plan Ophthalmology Referral 07/30/2013 Routine Advance Directives No Advance Directives available. Encounters AUDIT 11/27/2013IES, Provider: ERNESTINA CHRISTIANSON, Status: [place], Time: 9:30 AM 2013
--- OUTSIDE RECORDS SUMMARY | 2018-02-10 18:44 | XMS REPORT ---
:1980 Author Name Adelaide Petty Care Team Providers Name Role Phone Adelaide Petty Unavailable Unavailable Unavailable Reason for Referral No Reason for Referral was given. History of Present Illness No HPI available. Problems Normal Routine History And Physical Adult (V70.0); (Active)Multiple Sclerosis (340); (Active)Common Migraine (Without Aura) (346.10); (Active)Oral Thrush (112.0); (Active)Multiple Sclerosis (340); ( Active) Medication Rebif 44 MCG/0.5ML Subcutaneous Solution (Active)Zomig ZMT 5 MG Oral Tablet Dispersible;DISSOLVE 1 TAB ON TONGUE AND SWALLOW AT ONSET OF MIGRAINE. MAY REPEAT ONCE AFTER 2 HOURS. MAX 10 MG/DAY.; Start Date: 04/09/2012; End Date: 09/1899 (Active)Nystatin 915576 UNIT/ML Mouth/Throat Suspension;PLACE 5 ML 4 TIMES DAILY swish and swallow; Start Date: 12/30/2012; End Date: ( Active)Zolpidem Tartrate 5 MG Oral Tablet;TAKE 1 TABLET BY MOUTH NEEDED FOR SLEEP; Start Date: 06/27/2013 (Active)PredniSONE 50 MG Oral Tablet;TAKE 12 TABLET TWICE DAILY for 3 days; Start Date: 07/23/2013; End Date: ( Active)Sertraline HCl 50 MG Oral Tablet;TAKE 1 TABLET DAILY.; Start Date: 2012; End Date: (Active)Gilenya 0.5 MG Oral Capsule;TAKE 1 CAPSULE DAILY; Start Date: 07/30/2013 (Active)Gabapentin 300 MG Oral Capsule;TAKE 1 CAPSULE 3 TIMES DAILY PRN pain; Start Date: 07/30/2013; End Date: ( Active) Allergies and Adverse Reactions LORazepam TABS (Active) [...] DIFF/PLT) 08/07/2012 Routine[QL] HEPATIC FUNCTION PANEL 01/2012 RoutineOphthalmology Referral 07/30/2013 Routine Advance Directives No Advance Directives available. Encounters AUDIT 07/30/2013IES, Provider: ERNESTINA CHRISTIANSON, Status: [place], Time: 8:30 AM 2013
--- OUTSIDE RECORDS SUMMARY | 2018-02-10 18:44 | XMS REPORT | Summary of Care ---
:1980 Author Organization [facility] Address [id number] [place] [id number] Encounter HQ Stan_carlos(FIN) [id number] Date(s): 11/16/16 - 11/16/[address] [phone] Discharge Diagnosis: Encounter for medical screening examination Discharge Disposition: Non-Emergent Attending Physician: Tory Mora DO Vital Signs Most recent to oldest [Reference Range]: 1 Height 165.1 cm (11/16/16 9:46 AM) Temperature Oral [96.4-99.1 DegF] 97.7 DegF (11/16/16 9:46 AM) Blood Pressure [90-140/60-90 mmHg] 132/86 mmHg (11/16/16 9:46 AM) Respiratory Rate [14-20 BRMIN] 18 BRMIN (11/16/16 9:46 AM) Peripheral Pulse Rate [60-100 bpm] 88 bpm (11/16/16 9:46 AM) Weight 65.909 kg (11/16/16 9:46 AM) Body Mass Index 24.18 m2 (11/16/16 9:46 AM) Problem List Condition Effective Dates Status Health Status Informant Anemia1 06/06/14 Active Multiple sclerosis(Confirmed) Resolved Hypertensive episode2 06/06/14 Active Low back pain3 06/06/14 Active Migraine4 Active Multiple sclerosis5 Active 1Data migrated from [employer] on 01/30/15.2Data migrated from [employer] on 01/30/15.3Data migrated from [employer] on 01/30/15.4Data migrated from [employer] on 01/30/15.5Data migrated from [employer] on 01/30/15. Allergies, Adverse Reactions, Alerts Substance Reaction Severity Status Ativan Active LORazepam1 Active 1Data migrated from [employer] on 12/31/14. Originally documented as ATIVAN. angery Medications No data available for this section Results No data available for this section Immunizations No data available for this section Procedures Procedure Date Related Diagnosis Body Site section Hysterectomy Wrist repair Social History Social History Type Response Smoking Status Current every day smoker; Type: Cigarettes; Exposure to Tobacco Smoke self; Cigarette Smoking Last 365 Days Yes; Reg Smoking Cessation Counseling Yes Assessment and Plan No data available for this section
--- OUTSIDE RECORDS SUMMARY | 2018-02-10 18:44 | XMS REPORT ---
[...] MG/DAY. ; Start Date: 04/09/2012; End Date: (Active)Zolpidem Tartrate 5 MG Oral Tablet;TAKE 1 TABLET AT BEDTIME NEEDED FOR SLEEP. (Active) Allergies and Adverse Reactions LORazepam TABS [...] Treatment Plan [QLH] CBC (INCLUDES DIFF/PLT) 02/28/2012 Routine[QL] HEPATIC FUNCTION PANEL Routine[QLH] CBC (INCLUDES DIFF/PLT) 08/07/2012 Routine[QL] HEPATIC FUNCTION PANEL 08/07/2012 Routine Advance Directives No Advance Directives available. Encounters AUDIT 08/24/2012
--- OUTSIDE RECORDS SUMMARY | 2018-02-10 18:44 | XMS REPORT ---
[...] ; Start Date: 04/09/2012; End Date: (Active)Nystatin 789043 UNIT/ML Mouth/Throat Suspension;PLACE 5 ML 4 TIMES DAILY swish and swallow; Start Date: 12/30/2012; End Date: (Active)Zolpidem Tartrate 5 MG Oral Tablet; TAKE 1 TABLET AT BEDTIME NEEDED FOR SLEEP. [...] (INCLUDES DIFF/PLT) 02/28/2012 Routine[QLH] HEPATIC FUNCTION PANEL Routine[QLH] CBC (INCLUDES DIFF/PLT) 08/07/2012 Routine[QLH] HEPATIC FUNCTION PANEL 08/07/2012 Routine Advance Directives No Advance Directives available. Encounters AUDIT 12/30/2012
--- OUTSIDE RECORDS SUMMARY | 2018-02-10 18:44 | XMS REPORT ---
[...] (112.0); (Active)Multiple Sclerosis (340); ( Active) Medication Zomig ZMT 5 MG Oral Tablet Dispersible;DISSOLVE 1 TAB ON TONGUE AND SWALLOW AT ONSET OF MIGRAINE. MAY REPEAT ONCE AFTER 2 HOURS. MAX 10 MG/DAY.; Start Date: ; End Date: (Active)Nystatin 877286 UNIT/ML Mouth/Throat Suspension;PLACE 5 ML 4 TIMES DAILY swish and swallow; Start Date: 12/30/2012; End Date: (Active)Zolpidem Tartrate 5 MG Oral Tablet;TAKE 1 TABLET BY MOUTH NEEDED FOR SLEEP; Start Date: 06/27/2013 (Active)PredniSONE 50 MG Oral Tablet;TAKE 12 TABLET TWICE DAILY for 3 days; Start Date: 07/23/2013; End Date: (Active)Sertraline HCl 50 MG Oral Tablet;TAKE 1 TABLET DAILY.; Start Date: 07/30/2013; End Date: (Active)Gabapentin 300 MG Oral Capsule;TAKE 1 CAPSULE 3 TIMES DAILY PRN pain; Start Date: 07/30/2013; End Date : (Active)TiZANidine HCl 4 MG Oral Tablet; Start Date: 11/26/2013 ( Active)Hydrocodone-Acetaminophen 10-325 MG Oral Tablet; Start Date: 11/26/2013 ( Active)Meloxicam 15 MG Oral Tablet; Start Date: 11/26/2013 (Active)Gilenya 0.5 MG Oral Capsule;TAKE 1 CAPSULE DAILY; Start Date: 07/30/2013 (Active) [...] Directives No Advance Directives available. Encounters AUDIT 11/26/2013IES, Provider: ERNESTINA CHRISTIANSON, Status: Dudley, Time: 9:30 AM 2013
--- OUTSIDE RECORDS SUMMARY | 2018-02-10 18:44 | XMS REPORT ---
[...] Directives No Advance Directives available. Encounters AUDIT 04/11/2012IES, Provider: ERNESTINA CHRISTIANSON, Status: Dudley, Time: 1:00 PM 2011
--- OUTSIDE RECORDS SUMMARY | 2018-02-10 18:44 | XMS REPORT ---
:1980 Author Name Sarah Hamilton Care Team Providers Name Role Phone Sarah Hamilton Unavailable Unavailable Unavailable Reason for Referral No [...] Directives No Advance Directives available. Encounters AUDIT 05/15/2012IES, Provider: ERNESTINA CHRISTIANSON, Status: Pen, Time: 1:00 PM 2011
--- OUTSIDE RECORDS SUMMARY | 2018-02-10 18:44 | XMS REPORT ---
[...] ; Start Date: 04/09/2012; End Date: (Active)Nystatin 890112 UNIT/ML Mouth/Throat Suspension;PLACE 5 ML 4 TIMES DAILY swish and swallow; Start Date: 12/30/2012; End Date: (Active)Zolpidem Tartrate 5 MG Oral Tablet; TAKE 1 TABLET BY MOUTH NEEDED FOR SLEEP; Start Date: 06/27/2013 (Active) PredniSONE 50 MG Oral Tablet;TAKE 12 TABLET TWICE DAILY for 3 days; Start Date: 07/23/2013; End Date: (Active) Allergies and Adverse Reactions [...] Directives No Advance Directives available. Encounters AUDIT 07/23/2013IES, Provider: ERNESTINA CHRISTIANSON, Status: Dudley, Time: 1:00 PM 2012
--- NOTE | 2018-02-10 20:44 | RAD REPORT ---
EXAM DESCRIPTION: RAD - Ankle Left 3 View -02/10/2018 7:57 pm CLINICAL HISTORY: Left ankle pain FINDINGS: No fracture or dislocation is seen. No bone or joint abnormality seen
--- NOTE | 2018-02-10 21:12 | EDPHYS ---
Physician Documentation [facility] Name: Veda Garcia Age: 37 yrs Sex: Female : 1980 Arrival Date: 02/10/2018 Time: 18:46 Bed 8 Private MD: None, None ED Physician Derek oMran HPI: 02/10 19:20 This 37 yrs old Female presents to ER via Ambulatory with complaints of Leg cp Swelling. 19:20 The patient presents with pain, that is acute, swelling, tenderness. The complaints cp affect the left lower leg. Context: resulted from an unknown cause, the patient can fully bear weight. Onset: The symptoms/episode began/occurred 5 day(s) ago. Associated signs and symptoms: Pertinent positives: twisting injury to left ankle about 2 weeks ago, Pertinent negatives fever, warmth. Treatment prior to arrival includes: no previous treatment. Severity of symptoms: in the emergency department the symptoms have improved, mildly. 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 - Social history:: Smoking status: Patient uses tobacco products, smokes one-half pack cigarettes per day. - Ebola Screening: : No symptoms or risks identified at this time. ROS: 19:25 Constitutional: Negative for body aches, chills, fever, poor PO intake. cp 19:25 Eyes: Negative for injury, pain, redness, and discharge. cp 19:25 ENT: Negative for drainage from ear(s), ear pain, sore throat, difficulty swallowing, difficulty handling secretions. 19:25 Cardiovascular: Negative for chest pain, palpitations. 19:25 Respiratory: Negative for cough, shortness of breath, wheezing. 19:25 Abdomen/GI: Negative for abdominal pain, nausea, vomiting, and diarrhea. 19:25 Back: Negative for pain at rest, pain with movement, radiated pain. 19:25 MS/extremity: Positive for swelling, tenderness, of the left lower leg, left ankle pain, Negative for decreased range of motion, deformity, paresthesias. 19:25 Skin: Negative for cellulitis, rash. 19:25 Neuro: Negative for altered mental status, dizziness, weakness. 19:25 All other systems are negative. Exam: 19:33 Constitutional: The patient appears in no acute distress, alert, awake, cp non-diaphoretic, non-toxic, well developed, well nourished. 19:33 Head/Face: Normocephalic, atraumatic. cp 19:33 Eyes: Periorbital structures: appear normal, Conjunctiva: normal, no exudate, no injection, Lids and lashes: appear normal, bilaterally. 19:33 ENT: External ear(s): are unremarkable, Nose: is normal, Mouth: Lips: moist, Oral mucosa: moist, Posterior pharynx: is normal, airway is patent. 19:33 Neck: ROM/movement: is normal, is supple, without pain, no range of motions limitations, no nuchal rigidity. 19:33 Chest/axilla: Inspection: normal, Palpation: is normal, no crepitus, no tenderness. 19:33 Cardiovascular: Rate: normal, Rhythm: regular, Pulses: Pulses are 2+ in left dorsalis pedis artery. Edema: is not appreciated, JVD: is not appreciated. 19:33 Respiratory: the patient does not display signs of respiratory distress, Respirations: normal, no use of accessory muscles, no retractions, no splinting, no tachypnea, labored breathing, is not present, Breath sounds: are clear throughout, no decreased breath sounds, no stridor, no wheezing. 19:33 Abdomen/GI: Exam negative for discomfort, distension, guarding, Inspection: abdomen appears normal. 19:33 Back: pain, is absent, ROM is normal. 19:33 Musculoskeletal/extremity: Extremities: grossly normal except: noted in the left lower leg: minimal swelling noted, There is no evidence of erythema, rash, Joints: All joints are normal except the lateral aspect left ankle displays painful range of motion, tenderness. 19:33 Skin: cellulitis, is not appreciated, no rash present. Vital Signs: 18:48 BP 118 / 77; Pulse 80; Resp 15; Temp 98.4; Pulse Ox 100% on R/A; Weight 72.57 kg; hb Height 5 ft. 5 in. (165.10 cm); Pain 3/10; 19:20 BP 121 / 78; Pulse 65; Resp 18; Pulse Ox 95% on R/A; tl2 20:45 BP 106 / 82; Pulse 65; Resp 18; Pulse Ox 95% on R/A; tl2 20:46 BP 106 / 82; Pulse 57; Resp 16; Pulse Ox 97% on R/A; Pain 2/10; tl1 21:13 BP 111 / 83; Pulse 62; Resp 17; Temp 97.6; Pulse Ox 97% on R/A; Pain 2/10; tl1 18:48 Body Mass Index 26.63 (72.57 kg, 165.10 cm) hb MDM: 18:54 Patient medically screened. soy 20:00 Differential diagnosis: cellulitis, ankle sprain, ankle fracture, ankle dislocation, cp dependent edema, DVT. 21:10 Data reviewed: vital signs, nurses notes, radiologic studies, plain films, ultrasound. cp 21:10 Test interpretation: by ED physician or midlevel provider: plain radiologic studies. cp Counseling: I had a detailed discussion with the patient and/or guardian regarding: the historical points, exam findings, and any diagnostic results supporting the discharge/admit diagnosis, negative radiology results. Response to treatment: the patient's symptoms have mildly improved after treatment, and as a result, I will discharge patient. ED course: VSS. Ankle splinted with air cast and crutches given. Will discharge to home for continued monitoring. 02/10 19:18 Order name: XRAY Ankle LEFT 3 view cp 02/10 19:18 Order name: US Extremity Venous Unilateral Ltd cp 02/10 21:04 Order name: Aircast Ankle Splint; Complete Time: 21:30 cp 02/10 21:04 Order name: Crutches; Complete Time: 21:30 cp Administered Medications: No medications were administered Disposition: 02/10/18 21:11 Discharged to Home. Impression: Pain in ankle and joints of foot - Left. - Condition is Stable. - Discharge Instructions: Edema, Ankle Pain. - Prescriptions for Ibuprofen 800 mg Oral Tablet - take 1 tablet by ORAL route every 8 hours As needed take with food; 30 tablet. - Medication Reconciliation Form, Thank You Letter, Antibiotic Education, Prescription Opioid Use form. - Follow up: Private Physician; When: 2 - 3 days; Reason: Recheck today's complaints. - Problem is new. - Symptoms have improved. Addendum: 02/12/2018 10:46 Co-signature as Attending Physician, Derek Moran MD I agree with the assessment and c cantu plan of care. Signatures: Dispatcher [employer] Derek Skaggs MD MD cha Page, Corey, PA PA cp Dian Ribera, RN RN Cassandra Gonzalez RN RN tl2 Corrections: (The following items were deleted from the chart) 02/10 21:32 21:11 02/10/2018 21:11 Discharged to Home. Impression: Pain in ankle and joints of foot tl2 - Left. Condition is Stable. Forms are Medication Reconciliation Form, Thank You Letter, Antibiotic Education, Prescription Opioid Use. Follow up: Private Physician; When: 2 - 3 days; Reason: Recheck today's complaints. Problem is new. Symptoms have improved. cp
--- NOTE | 2018-02-10 21:12 | ER ---
Nurse's Notes [facility] Name: Veda Garcia Age: 37 yrs Sex: Female : 1980 Arrival Date: 02/10/2018 Time: 18:46 Bed 8 Private MD: None, None Diagnosis: Pain in ankle and joints of foot-Left Presentation: 02/10 18:47 Presenting complaint: Patient states: Intermittent ankle swelling x 5 days. Denies hb pain. Hx MS. Transition of care: patient was not received from another setting of care. Onset of symptoms was February 06, 2018. Risk Assessment: Do you want to hurt yourself or someone else? Patient reports no desire to harm self or others. Care prior to arrival: None. 18:47 Method Of Arrival: Ambulatory hb 18:47 Acuity: MACKENZIE 3 hb 20:03 Initial Sepsis Screen: Does the patient meet any 2 criteria? No. Patient's initial tl2 sepsis screen is negative. Does the patient have a suspected source of infection? No. Patient's initial sepsis screen is negative. 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 - Social history:: Smoking status: Patient uses tobacco products, smokes one-half pack cigarettes per day. - Ebola Screening: : No symptoms or risks identified at this time. Screenin:20 Abuse screen: Denies threats or abuse. Nutritional screening: No deficits noted. tl2 Tuberculosis screening: No symptoms or risk factors identified. Fall Risk None identified. Assessment: 19:20 General: Appears in no apparent distress. comfortable, Behavior is calm, cooperative, tl2 appropriate for age. Pain: Complains of pain in left ankle. Neuro: Level of Consciousness is awake, alert, obeys commands, Oriented to person, place, time, situation. Cardiovascular: Denies chest pain. Respiratory: Airway is patent Respiratory effort is even, unlabored, Respiratory pattern is regular, symmetrical. GI: No signs and/or symptoms were reported involving the gastrointestinal system. : No signs and/or symptoms were reported regarding the genitourinary system. Musculoskeletal: Range of motion: limited in left ankle Swelling absent. 20:30 Reassessment: Patient appears in no apparent distress at this time. Patient and/or tl2 family updated on plan of care and expected duration. Pain level reassessed. Patient is alert, oriented x 3, equal unlabored respirations, skin warm/dry/pink. 21:31 Reassessment: Patient appears in no apparent distress at this time. Patient and/or tl2 family updated on plan of care and expected duration. Pain level reassessed. Patient is alert, oriented x 3, equal unlabored respirations, skin warm/dry/pink. PT verbalized understanding of discharge instructions, need for follow up and prescription usage. Demonstrated correct crutch usage. Vital Signs: 18:48 BP 118 / 77; Pulse 80; Resp 15; Temp 98.4; Pulse Ox 100% on R/A; Weight 72.57 kg; hb Height 5 ft. 5 in. (165.10 cm); Pain 3/10; 19:20 BP 121 / 78; Pulse 65; Resp 18; Pulse Ox 95% on R/A; tl2 20:45 BP 106 / 82; Pulse 65; Resp 18; Pulse Ox 95% on R/A; tl2 20:46 BP 106 / 82; Pulse 57; Resp 16; Pulse Ox 97% on R/A; Pain 2/10; tl1 21:13 BP 111 / 83; Pulse 62; Resp 17; Temp 97.6; Pulse Ox 97% on R/A; Pain 2/10; tl1 18:48 Body Mass Index 26.63 (72.57 kg, 165.10 cm) hb ED Course: 18:46 Patient arrived in ED. mr 18:46 None, None is Private Physician. mr 18:48 Triage completed. hb 18:50 Arm band placed on right wrist. hb 18:52 Derek Baumann PA is PHCP. cp 18:52 Derek Moran MD is Attending Physician. cp 19:18 Cassandra Gonzalez, PRESTON is Primary Nurse. tl2 19:20 Patient has correct armband on for positive identification. Bed in low position. Call tl2 light in reach. Side rails up X 1. 19:29 Ultrasound completed. Patient tolerated well. ap2 19:54 X-ray completed. Portable x-ray completed in exam room. Patient tolerated procedure kw well. 19:56 XRAY Ankle LEFT 3 view In Process Unspecified. EDMS 21:14 No provider procedures requiring assistance completed. Patient did not have IV access tl1 during this emergency room visit. 22:47 US Extremity Venous Unilateral Ltd In Process Unspecified. EDMS Administered Medications: No medications were administered Outcome: 21:11 Discharge ordered by . cp 21:31 Discharged to home with crutches. tl2 21:31 Condition: stable 21:31 Discharge instructions given to patient, Instructed on discharge instructions, follow up and referral plans. medication usage, Demonstrated understanding of instructions, follow-up care, medications, Prescriptions given X 1. 21:32 Patient left the ED. tl2 Signatures: Dispatcher [employer] EDMS Lis Velasco mr CruzIngrid Tonya, RN RN tl1 Derek Baumann PA PA cp Baxter, Heather, PRESTON RN Cassandra Avitia RN RN tl2 Cher Erazo ap2
--- NOTE | 2018-02-11 07:58 | RAD REPORT ---
EXAM DESCRIPTION: VASExtremitlacey Venous Uni Ltd02/10/2018 10:47 pm CLINICAL HISTORY: left leg pain and swelling. COMPARISON: None. FINDINGS: Left common femoral, superficial femoral, popliteal and posterior tibial veins are compre ssible and demonstrate augmentation. Doppler demonstrates good flow. A 2 centimeter Chapman's cyst is present IMPRESSION: No evidence of deep venous thrombosis involving the left lower extremity. 2 centimeter left Chapman's cyst
== END 2018-02-10 21:32 | disposition home or self-care (01) ==
LOC: ER 18:38
DX: M79.672 Pain in left foot (principal); G35 Multiple sclerosis; F17.210 Nicotine dependence, cigarettes, uncomplicated; Z88.8 Allergy status to other drugs, medicaments and biological substances
CPT/HCPCS: 93971; 99283